=== PATIENT | male | born 1960 | race Caucasian/White ===

== ENCOUNTER 2016-09-12 15:42 | Emergency (ER) | payer BC, OTHER ==
--- NOTE | ~2016-09-12 | EKG ---
PATIENT: RYLAN MIRAMONTES UNIT #: [id number] Ventricular Rate: 75 BPM Atrial Rate: 75 BPM P-R Interval: 156 ms QRS Duration: 84 ms Q-T Interval: 408 ms QTC Calculation(Bezet): 455 ms P Excel: 47 degrees Calculated R Excel: -7 degrees Calculated T Excel: 47 degrees Diagnosis Line: Normal sinus rhythm Diagnosis Line: Low voltage QRS Diagnosis Line: Borderline ECG Diagnosis Line: When compared with ECG of 10-DEC-2011 18:31, Diagnosis Line: Vent. rate has decreased BY 45 BPM Diagnosis Line: Confirmed by EWA CARRASQUILLO MD ([id number]) on Diagnosis Line: 09/13/2016 7:15:56 AM INTERPRETING : NICOLE
--- NOTE | ~2016-09-12 | CR72 ---
[facility] A Service of [facility] & [facility] RADIOLOGY TEXT RESULTS PATIENT: RYLAN MIRAMONTES LOCATION: [facility] : 62 UNIT #: [id number] AGE: [address]: Isma Espinoza MD SEX: M ORDER DR: [id number] [facility] [address] [place], [place] [address] [id number] E MR#: [id number] Acc #: [id number] NAME: RYLAN MIRAMONTES. : 1960 SEX: M STUDY DATE/TIME: 09/12/2016 15:10 UNIT: [facility] ROOM: STUDY DESCRIPTION: CR Chest Single View Portable Attending Physician: Isma Espinoza M.D. Ordering Physician: Isma Espinoza M.D. Primary Care Physician: Fernando Ennis M.D. MEDICAL IMAGING REPORT This report is preliminary unless electronic signature is present EXAM Portable chest HISTORY 56-year-old male, shortness of air for 2 months, chest pain for 3 days. Smoker. FINDINGS AP portable view the chest demonstrates parenchymal hilar calcifications suggesting old granulomas disease. No infiltrates or effusions. Heart, mediastinum, great vessels, bony thorax unremarkable. Overall, no acute findings. Dictated by... Brian Gamez M.D. THIS IS AN ELECTRONICALLY VERIFIED REPORT Brian Gamez M.D. at 09/13/2016 1:06 PM ROBERTO/len TD: 09/12/2016 17:14 JOB #: [id number] MEDICAL IMAGING REPORT Page 1 of 1 COPY
[2016-09-12 15:35] LABS: BASOPHIL# 0.1 X10e3 (0-0.3); BASOPHIL% 0.9 % (0-2.5); EOSINOPHIL# 0.1 X10e3 (0-0.7); EOSINOPHIL% 0.8 % (0.0-7.0); HEMATOCRIT 44.2 % (38.0-50.0); HEMOGLOBIN 14.5 gm/dL (13.0-16.0); LYMPHOCYTE# 2.2 X10e3 (1.0-3.5); LYMPHOCYTE% 20.2 % (17.0-45.0); MEAN CELL VOLUME 85.5 FL (83-96); MEAN CORPUSCULAR HEMOGLOBIN 28.1 PG (28-34); MEAN CORPUSCULAR HGB CONC 32.9 g/dL (30-36); MEAN PLATELET VOLUME 7.6 FL (6.5-11.5); MONOCYTE# 0.7 X10e3 (0-1.0); NEUTROPHIL# 7.8 X10e3 (1.5-7.1); NEUTROPHIL% 72.1 % (40-75); PLATELET COUNT 264 X10e3 (140-420); RED BLOOD COUNT 5.17 X10e (3.90-5.60); RED CELL DISTRIBUTION WIDTH 13.9 % (11.0-15.5); WHITE BLOOD COUNT 10.8 X10e3 (4.0-10.5)
[2016-09-12 15:39] LABS: DIFF IND NO
[~2016-09-12 15:42] MED LIST: AMBIEN10 MG PO; AMOXICILLIN500 M1; ANTIBIOTIC; ARIPIPRAZOLE10 MG PO; AUGMENTIN PO; CLOBETASOL PROP15 G1 TOP; CLONAZEPAM0.5 MG PO; CYMBALTA PO; DESYREL50 MG PO; DICLOFENAC PO; DICYCLOMINE HCL20 MG PO; DULOXETINE HCL30 MG PO; FLOMAX0.4 M1 PO; HYDROCODON-ACE1 EAC1 PO; IBUPROFEN PO; KLONOPIN PO; KLONOPIN0.5 MG; KLONOPIN0.5 MG PO; LOSARTAN-HCTZ1 EACH PO; MOBIC PO; NEXIUM PO; PAROXETINE HCL20 MG PO; PRAVASTATIN SOD40 MG PO; PRILOSEC20 MG PO; PROTONIX PO; SYMBICORT80 INH; ULTRAM PO; VIIBRYD40 MG PO; ZITHROMAX1 G/PKT PO; ZOLOFT; ZOLOFT PO; ZOLOFT100 MG
[2016-09-12 15:48] LABS: PROTHROMBIN TIME (PATIENT) 10.2 SECONDS (9.6-11.5)
[2016-09-12 15:51] LABS: POC - CKMB 3.6 ng/mL (0.0-7.9); POC - TROPONIN <0.05 ng/mL (<=0.05)
[2016-09-12 16:03] LABS: ALBUMIN SERUM 3.8 g/dL (3.5-5.0); BILIRUBIN, DIRECT 0.1 mg/dL (0.0-0.2); BILIRUBIN,INDIRECT 0.7 mg/dL (0.0-0.9); BILIRUBIN,TOTAL 0.8 mg/dL (0.2-2.0); CREATININE SERUM 1.1 mg/dL (0.6-1.4); GLOM FILT RATE Estimated 75.2 mL/min (>60); POTASSIUM 3.5 mmol/L (3.5-5.1); PROTEIN TOTAL SERUM 6.9 g/dL (6.0-8.3)
[2016-09-12 17:00] LABS: POC - CKMB 3.5 ng/mL (0.0-7.9); POC - TROPONIN <0.05 ng/mL (<=0.05)
[2016-09-12 17:37] LABS: URINE SOURCE CLEAN CATCH
[2016-09-12 17:43] LABS: URINE APPEARANCE CLEAR; URINE BILIRUBIN NEG (NEG); URINE BLOOD NEG (NEG); URINE COLOR YELLOW; URINE GLUCOSE NEG (NEG); URINE KETONE NEG (NEG); URINE LEUKOCYTE ESTERASE NEG (NEG); URINE NITRATE NEG (NEG); URINE PROTEIN NEG (NEG); URINE SPECIFIC GRAVITY 1.017 (1.003-1.035)
[2016-09-12 17:48] LABS: CULTURE INDICATED? NO
[2016-09-12 17:52] LABS: AMPHETAMINE NEG (NEG); BARBITURATES NEG (NEG); BENZODIAZEPINES NEG (NEG); COCAINE NEG (NEG); MARIJUANA NEG (NEG); OPIATES NEG (NEG); TRICYCLIC ANTIDEPRESSANTS NEG (NEG); U METHADONE NEG (NEG)
[2016-12-29] MEDS ORDERED: DULOXETINE HCL60 M1 PO (09:54)
[2016-12-29] MEDS ORDERED: VISTARIL50 MG PO (09:55)
[2016-12-29] MEDS ORDERED: DESYREL50 MG DOB (09:56)
[2016-12-29] MEDS ORDERED: PRAVASTATIN SOD40 MG PO (09:56)
[2016-12-29] MEDS ORDERED: FLOMAX0.4 M1 DOB (09:56)
[2016-12-29] MEDS ORDERED: LOSARTAN-HCTZ1 EACH PO (09:57)
[2016-12-29] MEDS ORDERED: ABILIFY10 MG (09:57)
[2016-12-29] MEDS ORDERED: KLONOPIN0.5 M3 (09:58)
== END 2016-09-12 18:50 | disposition home or self-care (01) ==
LOC: CED 15:42
PROVIDERS: Emergency Medicine
DX: R06.02 Shortness of breath (principal); F32.9 Major depressive disorder, single episode, unspecified; J44.9 Chronic obstructive pulmonary disease, unspecified; F41.9 Anxiety disorder, unspecified
CPT/HCPCS: 36415; 71010; 80048; 80076; 80307; 81003; 82553; 83690; 83880; 84484; 85025; 85379; 85610; 85730; 93005; 94640; 96374; 99284; G0480; J2060

== ENCOUNTER 2016-10-13 13:07 | Emergency (ER) | payer BC ==
--- NOTE | ~2016-10-13 | CT71 ---
[facility] A Service of [facility] RADIOLOGY TEXT RESULTS PATIENT: RYLAN MIRAMONTES LOCATION: [facility] : 62 UNIT #: [id number] AGE: [address]: José Antonio Altman MD SEX: M ORDER DR: [id number] [facility] [address] [place], [place] [address] [id number] E MR#: [id number] Acc #: [id number] NAME: RYLAN MIRAMONTES. : 1960 SEX: M STUDY DATE/TIME: 10/13/2016 14:07 UNIT: [facility] ROOM: STUDY DESCRIPTION: CT Head Wo Contrast Ordering Physician: Twin Altman M.D. MEDICAL IMAGING REPORT This report is preliminary unless electronic signature is present EXAM CT brain without contrast 10/13/2016 COMPARISON STUDIES 02/07/2008. HISTORY Anxiety attack. Chest pain. Pain everywhere. Panic attacks. TECHNIQUE Axial imaging of the brain was performed without contrast media. This CT exam was performed with one or more of the following radiation dose reduction techniques: automatic exposure control, adjustment of mA and/or kV according to patient size, and iterative reconstruction. COMPARISON STUDIES 02/07/2008. FINDINGS Ventricular size and configuration is stable. There is some decreased attenuation in the right basal ganglia, likely a prominent perivascular space. There is also some ill-defined decreased attenuation in the white matter bilaterally. No mass lesions, mass effect acute hemorrhage or edema. CONCLUSION Atrophy. Small vessel deep white matter ischemic changes in the periventricular regions. No acute intracranial findings. NOTE Incidental note is made of inflammatory sinus disease in the frontal and [facility] A Service of [facility] RADIOLOGY TEXT RESULTS PATIENT: RYLAN MIRAMONTES LOCATION: [facility] : 62 UNIT #: [id number] AGE: [address]: José Antonio Altman MD SEX: M ORDER DR: ethmoid sinuses. Dictated by... Cyrus Spence M.D. THIS IS AN ELECTRONICALLY VERIFIED REPORT Cyrus Spence M.D. at 10/14/2016 12:15 PM CANDELARIO/len TD: 10/13/2016 17:10 JOB #: [id number] MEDICAL IMAGING REPORT Page 1 of 1 COPY
[2016-10-13 14:15] LABS: URINE SOURCE CLEAN CATCH
[2016-10-13 14:20] LABS: BASOPHIL# 0.1 X10e3 (0-0.3); BASOPHIL% 0.8 % (0-2.5); DIFF IND NO; EOSINOPHIL# 0.1 X10e3 (0-0.7); EOSINOPHIL% 0.7 % (0.0-7.0); HEMATOCRIT 44.3 % (38.0-50.0); HEMOGLOBIN 14.8 gm/dL (13.0-16.0); LYMPHOCYTE# 2.8 X10e3 (1.0-3.5); LYMPHOCYTE% 27.4 % (17.0-45.0); MEAN CELL VOLUME 86.1 FL (83-96); MEAN CORPUSCULAR HEMOGLOBIN 28.8 PG (28-34); MEAN CORPUSCULAR HGB CONC 33.5 g/dL (30-36); MEAN PLATELET VOLUME 7.8 FL (6.5-11.5); MONOCYTE# 0.7 X10e3 (0-1.0); MONOCYTE% 6.3 % (3.0-12.0); NEUTROPHIL# 6.7 X10e3 (1.5-7.1); NEUTROPHIL% 64.8 % (40-75); PLATELET COUNT 245 X10e3 (140-420); RED BLOOD COUNT 5.15 X10e (3.90-5.60); RED CELL DISTRIBUTION WIDTH 14.1 % (11.0-15.5); WHITE BLOOD COUNT 10.3 X10e3 (4.0-10.5)
[2016-10-13 14:28] LABS: URINE APPEARANCE CLEAR; URINE BILIRUBIN NEG (NEG); URINE BLOOD NEG (NEG); URINE COLOR DK YELLOW; URINE GLUCOSE NEG (NEG); URINE KETONE TRACE (NEG); URINE LEUKOCYTE ESTERASE TRACE (NEG); URINE NITRATE NEG (NEG); URINE PH 5.5 (5-8); URINE PROTEIN NEG (NEG); URINE SPECIFIC GRAVITY 1.022 (1.003-1.035)
[2016-10-13 14:30] LABS: AMPHETAMINE NEG (NEG); BARBITURATES NEG (NEG); BENZODIAZEPINES NEG (NEG); COCAINE NEG (NEG); MARIJUANA NEG (NEG); OPIATES NEG (NEG); TRICYCLIC ANTIDEPRESSANTS NEG (NEG); U METHADONE NEG (NEG)
[2016-10-13 14:31] LABS: URINE BACTERIA AUWI NEG (NEGATIVE); URINE SQUAMOUS EPITHELIAL CELL NONE SEEN /[HPF]
[2016-10-13 14:37] LABS: CULTURE INDICATED? NO
[2016-10-13 14:46] LABS: ALKALINE PHOSPHATASE 84 U/L (32-92); ALT (SGPT) 14 U/L (10-40); AST (SGOT) 13 U/L (10-42); BILIRUBIN, DIRECT 0.1 mg/dL (0.0-0.2); BILIRUBIN,INDIRECT 0.5 mg/dL (0.0-0.9); BILIRUBIN,TOTAL 0.6 mg/dL (0.2-2.0); BLOOD UREA NITROGEN 11 mg/dL (9-23); CALCIUM SERUM 9.1 mg/dL (8.4-10.2); CARBON DIOXIDE 29 mmol/L (22-31); CHLORIDE 103 mmol/L (100-111); GLOM FILT RATE Estimated 84.4 mL/min (>60); GLUCOSE FASTING 112 mg/dL (70-110); POTASSIUM 3.7 mmol/L (3.5-5.1); PROTEIN TOTAL SERUM 7.2 g/dL (6.0-8.3); SODIUM 139 mmol/L (135-145)
[2016-10-13 14:51] LABS: ALCOHOL BLOOD <5 mg/dL (0)
[2016-12-29] MEDS ORDERED: DULOXETINE HCL60 M1 PO (09:54)
[2016-12-29] MEDS ORDERED: VISTARIL50 MG PO (09:55)
[2016-12-29] MEDS ORDERED: DESYREL50 MG DOB (09:56)
[2016-12-29] MEDS ORDERED: PRAVASTATIN SOD40 MG PO (09:56)
[2016-12-29] MEDS ORDERED: FLOMAX0.4 M1 DOB (09:56)
[2016-12-29] MEDS ORDERED: LOSARTAN-HCTZ1 EACH PO (09:57)
[2016-12-29] MEDS ORDERED: ABILIFY10 MG (09:57)
[2016-12-29] MEDS ORDERED: KLONOPIN0.5 M3 (09:58)
== END 2016-10-13 19:45 | disposition home or self-care (01) ==
LOC: CED 13:07
PROVIDERS: Emergency Medicine
DX: F32.9 Major depressive disorder, single episode, unspecified (principal); I10 Essential (primary) hypertension; F17.210 Nicotine dependence, cigarettes, uncomplicated; Z79.899 Other long term (current) drug therapy
CPT/HCPCS: 70450; 80048; 80076; 80307; 81003; 85025; 99283; G0480

== ENCOUNTER 2016-11-16 06:56 | Emergency (ER) | payer BC ==
--- NOTE | ~2016-11-16 | CR72 ---
[facility] A Service of [facility] & [facility] RADIOLOGY TEXT RESULTS PATIENT: RYLAN MIRAMONTES LOCATION: [facility] : 62 UNIT #: [id number] AGE: [address]: Kaylene Swartz APRN SEX: M ORDER DR: [id number] [facility] [address] [place], [place] [address] [id number] E MR#: [id number] Acc #: [id number] NAME: RYLAN MIRAMONTES. : 1960 SEX: M STUDY DATE/TIME: 11/16/2016 8:04 UNIT: [facility] ROOM: STUDY DESCRIPTION: CR Chest Single View Portable Attending Physician: Kaylene Swartz A.P.R.N. Ordering Physician: Ed Doctor [id number] [facility] Primary Care Physician: [facility] MEDICAL IMAGING REPORT This report is preliminary unless electronic signature is present EXAM Portable chest INDICATIONS Cough for 1 month. COMPARISON 09/12/2016 FINDINGS There are increased interstitial opacities in the lungs and vague airspace opacity, mainly in the right base. Heart size stable. IMPRESSION There are increased interstitial opacities in the lungs and vague airspace opacity in the right base. Findings may reflect pulmonary edema or could be infectious or inflammatory. Dictated by... Melo Gamez M.D. THIS IS AN ELECTRONICALLY VERIFIED REPORT Melo Gamez M.D. at 11/17/2016 8:14 AM ANGELIQUE/royal TD: 11/16/2016 13:24 JOB #: [id number] MEDICAL IMAGING REPORT Page 1 of 1 COPY
--- NOTE | ~2016-11-16 | CT55 ---
[facility] A Service of [facility] RADIOLOGY TEXT RESULTS PATIENT: RYLAN MIRAMONTES LOCATION: [facility] : 62 UNIT #: [id number] AGE: [address]: Kaylene Swartz APRN SEX: M ORDER DR: [id number] [facility] [address] [place], [place] [address] [id number] E MR#: [id number] Acc #: [id number] NAME: RYLAN MIRAMONTES. : 1960 SEX: M STUDY DATE/TIME: 11/16/2016 8:55 UNIT: [facility] ROOM: STUDY DESCRIPTION: CT Chest W Con Attending Physician: Kaylene Swartz A.P.R.N. Ordering Physician: Melvi Mendoza M.D. Primary Care Physician: [facility] MEDICAL IMAGING REPORT This report is preliminary unless electronic signature is present EXAM Chest CT 11/16/2016 INDICATION Weight loss over the last month with a cough for 2 months. TECHNIQUE Axial images were obtained through the chest following IV contrast administration. Multiplanar reformats were obtained. No comparison. This CT examination was performed with one or more of the following radiation dose reduction techniques: automatic exposure control, adjustment of mA and/or kV according to patient size, and iterative reconstruction. FINDINGS No pleural or pericardial effusion is seen. There is no adenopathy. There is a mild degree of emphysema. Scattered granulomatous calcifications are present in both lungs. There are no acute infiltrates. For description of findings in the upper abdomen, please see the abdomen and pelvis CT report dictated separately. There is diffuse degenerative disease in the thoracic spine. IMPRESSION Emphysema and old granulomatous disease. No active disease in the chest. Dictated by... Xavier Espinoza Jr., M.D. THIS IS AN ELECTRONICALLY VERIFIED REPORT Xavier Espinoza Jr., M.D. at 11/16/2016 3:38 PM RLK/marcias [facility] A Service of [facility] RADIOLOGY TEXT RESULTS PATIENT: RYLAN MIRAMONTES LOCATION: [facility] : 62 UNIT #: [id number] AGE: [address]: Kaylene Swartz APRN SEX: M ORDER DR: TD: 11/16/2016 14:11 JOB #: [id number] MEDICAL IMAGING REPORT Page 1 of 1 COPY
--- NOTE | ~2016-11-16 | CT2 ---
[facility] A Service of [facility] RADIOLOGY TEXT RESULTS PATIENT: RYLAN MIRAMONTES LOCATION: [facility] : 62 UNIT #: [id number] AGE: [address]: Kaylene Swartz APRN SEX: M ORDER DR: [id number] [place] [id number] [facility] [place], [place] [address] [id number] E MR#: [id number] Acc #: [id number] NAME: RYLAN MIRAMONTES. : 1960 SEX: M STUDY DATE/TIME: 11/16/2016 8:55 UNIT: [facility] ROOM: STUDY DESCRIPTION: CT Abd and Pelv W Cont Attending Physician: Kaylene Swartz A.P.R.N. Ordering Physician: Melvi Mendoza M.D. Primary Care Physician: [facility] MEDICAL IMAGING REPORT This report is preliminary unless electronic signature is present EXAM CT scan of the abdomen and pelvis with contrast INDICATIONS Abdominal pain and generalized abdominal tenderness for [address] of the abdomen and pelvis was performed following administration of oral and IV contrast. Coronal and sagittal reformatted images were obtained. The CT exam was performed with one or more of the following radiation dose reduction techniques: automatic exposure control, adjustment of mA and/or kV according to patient size, and iterative reconstruction. COMPARISON: 06/16/07 FINDINGS There are calcified granulomas within the lung bases. The liver, gallbladder and spleen are unremarkable. There are some cysts within the left kidney. There is a tiny nonobstructing stone within the midpole of the right kidney. The adrenal glands and pancreas are unremarkable. Pelvis: The colon is unremarkable. There is no free fluid. The appendix is normal. Bone windows demonstrate degenerative changes of the lumbar spine. IMPRESSION There is no acute intraabdominal or pelvic abnormality. Dictated by... [facility] A Service [facility] RADIOLOGY TEXT RESULTS PATIENT: RYLAN MIRAMONTES LOCATION: [facility] : 62 UNIT #: [id number] AGE: [address]: Kaylene Swartz APRN SEX: M ORDER DR: Melo Gamez M.D. THIS IS AN ELECTRONICALLY VERIFIED REPORT Melo Gamez M.D. at 11/17/2016 8:15 AM ANGELIQUE/terry TD: 11/16/2016 14:02 JOB #: [id number] MEDICAL IMAGING REPORT Page 1 of 1 COPY
--- NOTE | ~2016-11-16 | EKG ---
PATIENT: RYLAN MIRAMONTES UNIT #: [id number] Ventricular Rate: 79 BPM Atrial Rate: 79 BPM P-R Interval: 150 ms QRS Duration: 82 ms Q-T Interval: 408 ms QTC Calculation(Bezet): 467 ms P [place]: 56 degrees Calculated R [place]: -5 degrees Calculated T [place]: 58 degrees Diagnosis Line: Normal sinus rhythm Diagnosis Line: Normal ECG Diagnosis Line: When compared with ECG of 12-SEP-2016 15:09, Diagnosis Line: No significant change was found Diagnosis Line: Confirmed by EWA CARRASQUILLO MD ([id number]) on Diagnosis Line: 11/17/2016 10:51:48 AM INTERPRETING BRUCE RIVERA
[2016-11-16 08:02] LABS: BASOPHIL# 0.1 X10e3 (0-0.3); BASOPHIL% 0.4 % (0-2.5); EOSINOPHIL# 0.1 X10e3 (0-0.7); EOSINOPHIL% 0.6 % (0.0-7.0); HEMATOCRIT 44.4 % (38.0-50.0); HEMOGLOBIN 14.5 gm/dL (13.0-16.0); LYMPHOCYTE# 2.3 X10e3 (1.0-3.5); MEAN CELL VOLUME 86.3 FL (83-96); MEAN CORPUSCULAR HEMOGLOBIN 28.2 PG (28-34); MEAN CORPUSCULAR HGB CONC 32.6 g/dL (30-36); MEAN PLATELET VOLUME 7.7 FL (6.5-11.5); MONOCYTE# 0.9 X10e3 (0-1.0); MONOCYTE% 5.7 % (3.0-12.0); NEUTROPHIL# 12.7 X10e3 (1.5-7.1); NEUTROPHIL% 79.3 % (40-75); PLATELET COUNT 250 X10e3 (140-420); RED BLOOD COUNT 5.14 X10e (3.90-5.60); RED CELL DISTRIBUTION WIDTH 14.8 % (11.0-15.5); WHITE BLOOD COUNT 16.1 X10e3 (4.0-10.5)
[2016-11-16 08:03] LABS: DIFF IND YES
[2016-11-16 08:13] LABS: POC - CKMB <1.0 ng/mL (0.0-7.9); POC - TROPONIN <0.05 ng/mL (<=0.05)
[2016-11-16 08:30] LABS: ALBUMIN SERUM 3.6 g/dL (3.5-5.0); BILIRUBIN, DIRECT 0.2 mg/dL (0.0-0.2); BILIRUBIN,INDIRECT 0.9 mg/dL (0.0-0.9); BILIRUBIN,TOTAL 1.1 mg/dL (0.2-2.0); CALCIUM SERUM 8.6 mg/dL (8.4-10.2); GLOM FILT RATE Estimated 84.4 mL/min (>60); PROTEIN TOTAL SERUM 6.7 g/dL (6.0-8.3)
[2016-11-16 08:37] LABS: POTASSIUM 2.9 mmol/L (3.5-5.1)
[2016-11-16 09:00] LABS: PLATELET ESTIMATE NORMAL (NORMAL); RBC NORMAL YES
[2016-11-16 10:14] LABS: URINE SOURCE CLEAN CATCH
[2016-11-16 10:46] LABS: URINE APPEARANCE CLEAR; URINE BILIRUBIN NEG (NEG); URINE BLOOD NEG (NEG); URINE COLOR YELLOW; URINE GLUCOSE NEG (NEG); URINE KETONE NEG (NEG); URINE LEUKOCYTE ESTERASE 1+ (NEG); URINE NITRATE NEG (NEG); URINE PROTEIN NEG (NEG); URINE SPECIFIC GRAVITY 1.017 (1.003-1.035); URINE UROBILINOGEN 0.2 MG/DL (NEG)
[2016-11-16 10:49] LABS: URBCS1 AUWI 0-2 /[HPF] (0-2); URINE BACTERIA AUWI NEG (NEGATIVE); URINE SQUAMOUS EPITHELIAL CELL NONE SEEN /[HPF]; UWBCS1 AUWI 0-2 (0-5)
[2016-11-16 11:02] LABS: CULTURE INDICATED? NO
[2016-11-16 11:05] LABS: URINE AMORPHOUS SEDIMENT AMORP PHOSPHATES
[2016-12-29] MEDS ORDERED: DULOXETINE HCL60 M1 PO (09:54)
[2016-12-29] MEDS ORDERED: VISTARIL50 MG PO (09:55)
[2016-12-29] MEDS ORDERED: FLOMAX0.4 M1 DOB (09:56)
[2016-12-29] MEDS ORDERED: PRAVASTATIN SOD40 MG PO (09:56)
[2016-12-29] MEDS ORDERED: DESYREL50 MG DOB (09:56)
[2016-12-29] MEDS ORDERED: LOSARTAN-HCTZ1 EACH PO (09:57)
[2016-12-29] MEDS ORDERED: ABILIFY10 MG (09:57)
[2016-12-29] MEDS ORDERED: KLONOPIN0.5 M3 (09:58)
== END 2016-11-16 12:03 | disposition home or self-care (01) ==
LOC: CED 06:56
PROVIDERS: Nurse Practitioner
DX: R10.9 Unspecified abdominal pain (principal); E87.6 Hypokalemia; R06.02 Shortness of breath; F41.9 Anxiety disorder, unspecified; F17.210 Nicotine dependence, cigarettes, uncomplicated
CPT/HCPCS: 36415; 71010; 71260; 74177; 80048; 80076; 81003; 82150; 82553; 83690; 84484; 85025; 93005; 96361; 96374; 96375; 99285; J1885; J2405; Q9967

== ENCOUNTER 2016-12-02 13:00 | Inpatient (IN) | payer BC ==
[~2016-12-02] VITALS: Ht 185.4 cm; Wt 111.1 kg
--- NOTE | ~2016-12-02 | DS ---
Unit #: [id number] #: [id number] Patient: RYLAN MIRAMONTES [id number] [facility] [address] [place] [address] [id number] I MR#: [id number] NAME: RYLAN MIRAMONTES. ROOM: P266 Age: 56 Sex: M Admission Date: 12/02/2016 : 1960 Discharge Date: 12/03/2016 Attending Physician: Ruddy Peterson M.D. Primary Care Physician: Chey Enriquez [facility] DISCHARGE SUMMARY REASON FOR ADMISSION The patient is a 56-year-old white male admitted with increasing depression and suicidal ideation. HOSPITAL COURSE The patient was admitted to the -[facility] and placed on suicide precautions. He was continued on previously prescribed medications and Cymbalta increased to 120 mg daily. The patient requested discharge on the date of admission reporting that he was having no thoughts of suicide but did agree to 24 hours of observation. By 12/04, the patient continued to deny suicidal ideation and requested discharge from the hospital, and it was so ordered. FINAL DIAGNOSES 1. Major depressive disorder, recurrent, moderate. 2. Hard of hearing. 3. Congenital hearing loss. 4. Hypertension. 5. Dyslipidemia. 6. Chronic obstructive pulmonary disease. 7. Benign prostatic hypertrophy. 8. Gastroesophageal reflux disease. DISPOSITION ON DISCHARGE The patient was discharged on the following medications: 1. Cymbalta 120 mg daily for depression. 2. Vistaril 50 mg q. 6 hours p.r.n. anxiety. 3. Oretic 12.5 mg once daily for hypertension. 4. Cozaar 50 mg once daily for hypertension. 5. Zofran 4 mg 3 times daily for nausea. 6. Klor-Con 21 q. day for potassium supplementation. 7. Desyrel 50 mg a day p.r.n. insomnia. 8. Flomax 0.8 mg daily for benign prostatic hypertrophy. 9. Lipitor 10 mg at bedtime for dyslipidemia. 10. Proventil HFA 2 puffs q. 4 hours p.r.n. shortness of air. 11. Abilify 10 mg daily for depression. DIET AND ACTIVITY No dietary or physical restrictions placed on the patient at the time of discharge. FOLLOWUP Followup will take place through the auspices of [facility]. Unit #: [id number] #: [id number] Patient: RYLAN MIRAMONTES PROGNOSIS Considered fair. Dictated by... Genet Jose TD: 12/04/2016 12:11 JOB #: [id number] DISCHARGE SUMMARY Page 1 of 1 X Ruddy Peterson MD X DISCHARGE SUMMARY
--- NOTE | ~2016-12-02 | HP ---
Unit #: [id number] #: [id number] Patient: RANDOLPH MIRAMONTES [id number] [place] [address] [id number] I MR#: [id number] NAME: RANDOLPH MIRAMONTES. ROOM: P266 Age: 56 Sex: M Admission Date: 12/02/2016 : 1960 Attending Physician: Ruddy Peterson M.D. Admitting Physician: Ruddy Peterson M.D. Primary Care Physician: Chey Enriquez [facility] HISTORY AND PHYSICAL HISTORY OF PRESENT ILLNESS Randolph is a 56 year old admitted to [address] [place] [address] with depression, increased anxiety and verbalizing wanting to hurt himself. PAST MEDICAL HISTORY 1. GERD. 2. High blood pressure. 3. Hyperlipidemia. 4. COPD. 5. BPH. 6. Congenital hearing loss. a. He wears hearing aids in both ears but only has the right one with him during this admission. PAST SURGICAL HISTORY Nothing reported. ALLERGIES Gabapentin. SOCIAL HISTORY Smokes 1-1/2 packs per day. Denies alcohol and illicit drug use. FAMILY HISTORY Medically noncontributory. REVIEW OF SYSTEMS CONSTITUTIONAL: No fever or chills. HEENT: Denies any sore throat, ear pain or runny nose. CARDIOVASCULAR: Denies chest pain, irregular heart rhythm or palpitations. CHEST: Denies shortness of breath or cough. No hemoptysis. GASTROINTESTINAL: Denies nausea, vomiting, diarrhea or chronic constipation. ENDOCRINE: Denies history of increased thirst or urination. No recent significant weight loss or gain. GENITOURINARY: Denies dysuria, frequency, or hematuria. SKIN: Denies any rashes. HEMATOLOGIC: Denies history of increased bleeding or bruising. MUSCULOSKELETAL: Denies any hot, swollen joints. No generalized muscle pain. NEUROLOGIC: Denies problems with vision or speech. No frequent, severe headaches. No numbness, tingling or weakness in any extremities. Denies loss of bladder or bowel control. Unit #: [id number] #: [id number] Patient: RANDOLPH MIRAMONTES CURRENT MEDICATIONS 1. Lipitor 10 mg daily. 2. Desyrel 50 mg daily. 3. Melatonin 6 mg q.h.s. p.r.n. 4. Milk of Magnesia p.r.n. 5. Maalox p.r.n. 6. Tylenol p.r.n. 7. Proventil inhaler p.r.n. 8. Zofran p.r.n. 9. Nicotine patch 14 mg daily. 10. Abilify 10 mg q.a.m. 11. Hyzaar 50/12.5 one tab daily. 12. Flomax 0.8 mg daily. 13. Cymbalta 90 mg daily. 14. KCL 20 mEq daily. PHYSICAL EXAMINATION GENERAL: Alert, well-nourished, in no apparent distress. VITAL SIGNS: Blood pressure 110/70, heart rate 80, respirations 16, temperature 98.6. WEIGHT: 245. HEIGHT: 6 feet 1 inch. SKIN: Warm and dry without rash or lesion. HEENT: Normocephalic. TMs not viewed. Oral and nasal passages clear. Conjunctivae clear. PERRLA. EOMs intact. NECK: Supple without lymphadenopathy or thyromegaly. HEART: Regular rate and rhythm without murmur. LUNGS: Clear. ABDOMEN: Soft, nontender. : Not done. EXTREMITIES: No evidence of cyanosis, clubbing or edema. Moves all without focal deficit. NEUROLOGICAL: Grossly within normal limits. Cranial Nerves: II: Visual smith are intact. III, IV AND : Extraocular movements are intact. Pupils are equal, round and reactive to light. V: Facial sensation is grossly normal. VII: Facial movements and expression are normal. VIII: Auditory acuity grossly intact. IX, X: Uvula is midline. Phonation is normal. XI: Patient shrugs shoulders and turns head normally. XII: Tongue protrudes in the midline. Sensory and Motor Function: Sensory and motor sensation is grossly normal. Motor: moves all extremities well. Coordination: Gait is normal. Deep Tendon Reflexes: Intact. IMPRESSION Psychiatric admission. RECOMMENDATIONS PSYCHIATRIC: Per psychiatrist. MEDICAL: 1. See no contraindication to participate in facility's activities. 2. Continue Lipitor, Proventil, Hyzaar, Flomax and KCL. MEDICAL PROGNOSIS Good. Unit #: [id number] #: [id number] Patient: RANDOLPH MIRAMONTES MEDICAL CONDITION Stable. Dictated by... Cee Valenzuela P.A.-C. for Genet BañuelosJA/mesfin TD: 12/02/2016 21:34 JOB #: [id number] HISTORY AND PHYSICAL Page 1 of 1 X Cee Valenzuela HISTORY AND PHYSICAL
--- NOTE | ~2016-12-02 | PA ---
Unit #: [id number] #: [id number] Patient: RYLAN MIRAMONTES [id number] [facility] [address] [place] [address] [id number] I MR#: [id number] NAME: RYLAN MIRAMONTES. ROOM: P266 Age: 56 Sex: M Admission Date: 12/02/2016 : 1960 Date of Assessment: 12/03/2016 Attending Physician: Ruddy Peterson M.D. Admitting Physician: Ruddy Peterson M.D. Primary Care Physician: [facility] PSYCHIATRIC ASSESSMENT IDENTIFYING INFORMATION The patient is a 56-year-old white male admitted with increasing depression and suicidal ideation. CHIEF COMPLAINT None given. INFORMANT Patient and chart, reliability good. HISTORY OF PRESENT ILLNESS The patient is a 56-year-old white male brought to this facility by his yesterday. The patient reports that he is having increasing panic attacks at his work place which become difficult for him. He reports that he has visited emergency rooms 4 to 5 times in the past 2 months secondary to these panic attacks. He was reporting positive suicidal ideation but denied plan or intent. When seen, the patient is prescribed Cymbalta, Neurontin, trazodone, and Abilify at this time. According to the patient's , "all that patient wants to do is lie down and sleep all the time including his time at work." The patient reports no current suicidal ideation and is wishing for discharge. He reports that family members have removed firearms from the home. He denies use of any psychoactive substances. PAST PSYCHIATRIC HISTORY The patient has been followed at [facility] and is on a host of psychotropic medications including trazodone, Cymbalta, and Abilify. It is unclear whether he has been taking Neurontin as he claims an allergy to this medication. PAST MEDICAL HISTORY The patient suffers from benign prostatic hypertrophy, hypertension, and dyslipidemia as well as COPD. MEDICATIONS Abilify, Pro-Air, pravastatin, losartan, Flomax, Cymbalta, trazodone, potassium, and Zofran. ALLERGIES Gabapentin. FAMILY HISTORY Noncontributory. Unit #: [id number] #: [id number] Patient: RYLAN MIRAMONTES SOCIAL HISTORY The patient lives with his and 2 children. He is employed in maintenance at the [employer]. He denies use of alcohol or street drugs. He is a smoker. MENTAL STATUS EXAMINATION Examination at this time reveals the patient to be a well-developed well-nourished white male appearing stated age. She is in no apparent physical distress at the time of examination. He is awake, alert, and oriented in all spheres. His mood is mildly dysphoric, his affect constricted. Speech is generally well-coherent. There are no gross deficits in memory or cognition noted. Intelligence is judged to be in the low average range based on fund of knowledge and ability to provide history. The patient is cooperative throughout the interview. He is currently denying suicidal or homicidal ideation or any psychotic symptoms. His judgment and insight appear to be reasonably intact. ASSETS AND LIABILITIES The patient's assets: Supportive family. Liabilities: Severity of illness. DIAGNOSTIC IMPRESSION 1. Major depressive disorder, recurrent, severe, without psychotic features. 2. Benign prostatic hypertrophy. 3. Hypertension. 4. Hypercholesterolemia. 5. Chronic obstructive pulmonary disease. TREATMENT PLAN The patient remains hospitalized for safety and stabilization. I will increase the patient's Cymbalta dose to 120 mg daily, and we will consider addition of BuSpar or another medication to address the patient's symptoms of anxiety. The patient is hard of hearing but also seems to have some difficulty processing information almost seeming (1) __ this is related to his limited intelligence or perhaps an early dementia remains unseen, and may need to be explored if not during this hospitalization outside the hospital. ESTIMATED LENGTH OF STAY 3 to 5 days. Dictated by... Ruddy Peterson M.D. [place] TD: 12/03/2016 14:06 JOB #: [id number] Unit #: [id number] #: [id number] Patient: RYLAN MIRAMONTES PSYCHIATRIC ASSESSMENT Page 1 of 1 X Ruddy Peterson MD PSYCHIATRIC ASSESSMENT
[2016-12-03 12:38] LABS: BASOPHIL% 0.3 % (0-2.5); EOSINOPHIL# 0.1 X10e3 (0-0.7); EOSINOPHIL% 1.2 % (0.0-7.0); HEMATOCRIT 45.8 % (38.0-50.0); HEMOGLOBIN 14.8 gm/dL (13.0-16.0); LYMPHOCYTE# 2.4 X10e3 (1.0-3.5); LYMPHOCYTE% 22.8 % (17.0-45.0); MEAN CELL VOLUME 86.6 FL (83-96); MEAN CORPUSCULAR HGB CONC 32.4 g/dL (30-36); MEAN PLATELET VOLUME 8.5 FL (6.5-11.5); MONOCYTE# 0.6 X10e3 (0-1.0); MONOCYTE% 6.2 % (3.0-12.0); NEUTROPHIL# 7.2 X10e3 (1.5-7.1); NEUTROPHIL% 69.5 % (40-75); PLATELET COUNT 235 X10e3 (140-420); RED BLOOD COUNT 5.29 X10e (3.90-5.60); RED CELL DISTRIBUTION WIDTH 14.5 % (11.0-15.5); WHITE BLOOD COUNT 10.3 X10e3 (4.0-10.5)
[2016-12-03 12:47] LABS: DIFF IND NO
[2016-12-03 12:55] LABS: ALBUMIN SERUM 3.6 g/dL (3.5-5.0); BILIRUBIN,TOTAL 0.5 mg/dL (0.2-2.0); CALCIUM SERUM 9.2 mg/dL (8.4-10.2); GLOM FILT RATE Estimated 84.4 mL/min (>60); POTASSIUM 4.3 mmol/L (3.5-5.1); PROTEIN TOTAL SERUM 6.7 g/dL (6.0-8.3)
[2016-12-04 11:07] LABS: URINE APPEARANCE CLEAR; URINE BILIRUBIN NEG (NEG); URINE BLOOD NEG (NEG); URINE COLOR YELLOW; URINE GLUCOSE NEG (NEG); URINE KETONE NEG (NEG); URINE LEUKOCYTE ESTERASE NEG (NEG); URINE NITRATE NEG (NEG); URINE PH 7.5 (5-8); URINE PROTEIN NEG (NEG); URINE SPECIFIC GRAVITY 1.013 (1.003-1.035); URINE UROBILINOGEN 0.2 MG/DL (NEG)
[2016-12-04 11:22] LABS: AMPHETAMINE NEG (NEG); BARBITURATES NEG (NEG); BENZODIAZEPINES NEG (NEG); COCAINE NEG (NEG); MARIJUANA NEG (NEG); OPIATES NEG (NEG); TRICYCLIC ANTIDEPRESSANTS NEG (NEG); U METHADONE NEG (NEG)
[2016-12-29] MEDS ORDERED: DULOXETINE HCL60 M1 PO (09:54)
[2016-12-29] MEDS ORDERED: VISTARIL50 MG PO (09:55)
[2016-12-29] MEDS ORDERED: DESYREL50 MG DOB (09:56)
[2016-12-29] MEDS ORDERED: FLOMAX0.4 M1 DOB (09:56)
[2016-12-29] MEDS ORDERED: PRAVASTATIN SOD40 MG PO (09:56)
[2016-12-29] MEDS ORDERED: LOSARTAN-HCTZ1 EACH PO (09:57)
[2016-12-29] MEDS ORDERED: ABILIFY10 MG (09:57)
[2016-12-29] MEDS ORDERED: KLONOPIN0.5 M3 (09:58)
== END 2016-12-04 11:45 | disposition home or self-care (01) | DRG 885 ==
LOC: P2L 16:31
PROVIDERS: Specialist
DX: F33.2 Major depressive disorder, recurrent severe without psychotic features (principal); H90.5 Unspecified sensorineural hearing loss; I10 Essential (primary) hypertension; N40.0 Benign prostatic hyperplasia without lower urinary tract symptoms; E78.00 Pure hypercholesterolemia, unspecified; J44.9 Chronic obstructive pulmonary disease, unspecified; K21.9 Gastro-esophageal reflux disease without esophagitis
CPT/HCPCS: 80053; 80307; 81003; 85025

== ENCOUNTER 2016-12-08 17:40 | Emergency (ER) | payer BC ==
[~2016-12-08] VITALS: Ht 185.4 cm; Wt 110.2 kg
--- NOTE | ~2016-12-08 | CR72 ---
[facility] A Service of [facility] & [facility] RADIOLOGY TEXT RESULTS PATIENT: RYLAN MIRAMONTES LOCATION: [facility] : 62 UNIT #: [id number] AGE: [address]: Xavier Henry MD SEX: M ORDER DR: [id number] [facility] [address] [place], [place] [address] [id number] E MR#: [id number] Acc #: [id number] NAME: RYLAN MIRAMONTES. : 1960 SEX: M STUDY DATE/TIME: 12/08/2016 18:46 UNIT: [facility] ROOM: STUDY DESCRIPTION: CR Chest Single View Portable Attending Physician: Xavier Henry M.D. Ordering Physician: Xavier Henry M.D. Primary Care Physician: [facility] MEDICAL IMAGING REPORT This report is preliminary unless electronic signature is present EXAM Portable chest 12/08/2016 HISTORY 56-year-old male with chest pain and shortness of air beginning 2 days ago. COMPARISON Chest 11/16/2016 FINDINGS Two frontal views of the chest demonstrate clear lungs. No pleural effusion or pneumothorax. Heart size and mediastinum are normal. Pulmonary vasculature normal. IMPRESSION No acute cardiopulmonary findings Dictated by... Alvin Daniel M.D. THIS IS AN ELECTRONICALLY VERIFIED REPORT Alvin Daniel M.D. at 12/09/2016 3:58 PM WALDO/brandon TD: 12/09/2016 05:08 JOB #: [id number] MEDICAL IMAGING REPORT Page 1 of 1 COPY
--- NOTE | ~2016-12-08 | EKG ---
PATIENT: RYLAN MIRAMONTES UNIT #: [id number] Ventricular Rate: 86 BPM Atrial Rate: 86 BPM P-R Interval: 150 ms QRS Duration: 76 ms Q-T Interval: 384 ms QTC Calculation(Bezet): 459 ms P Morrison: 65 degrees Calculated R [place]: 32 degrees Calculated T Morrison: 60 degrees Diagnosis Line: Normal sinus rhythm Diagnosis Line: Normal ECG Diagnosis Line: When compared with ECG of 16-NOV-2016 07:48, Diagnosis Line: No significant change was found Diagnosis Line: Confirmed by ILIA ASCENCIO MD ([id number]) on Diagnosis Line: 12/10/2016 7:29:29 AM INTERPRETING MD: SILVA TSE
[2016-12-08 18:40] LABS: BASOPHIL# 0.1 X10e3 (0-0.3); BASOPHIL% 1.1 % (0-2.5); EOSINOPHIL# 0.2 X10e3 (0-0.7); EOSINOPHIL% 1.6 % (0.0-7.0); HEMATOCRIT 47.1 % (38.0-50.0); HEMOGLOBIN 15.4 gm/dL (13.0-16.0); LYMPHOCYTE# 3.8 X10e3 (1.0-3.5); MEAN CELL VOLUME 85.6 FL (83-96); MEAN CORPUSCULAR HGB CONC 32.8 g/dL (30-36); MEAN PLATELET VOLUME 7.9 FL (6.5-11.5); MONOCYTE# 0.7 X10e3 (0-1.0); MONOCYTE% 6.5 % (3.0-12.0); NEUTROPHIL# 5.6 X10e3 (1.5-7.1); NEUTROPHIL% 53.8 % (40-75); PLATELET COUNT 247 X10e3 (140-420); RED BLOOD COUNT 5.51 X10e (3.90-5.60); RED CELL DISTRIBUTION WIDTH 14.5 % (11.0-15.5); WHITE BLOOD COUNT 10.3 X10e3 (4.0-10.5)
[2016-12-08 18:44] LABS: DIFF IND NO
[2016-12-08 18:55] LABS: POC - CKMB <1.0 ng/mL (0.0-7.9); POC - TROPONIN <0.05 ng/mL (<=0.05)
[2016-12-08 19:05] LABS: ALBUMIN SERUM 3.9 g/dL (3.5-5.0); BILIRUBIN, DIRECT 0.1 mg/dL (0.0-0.2); BILIRUBIN,TOTAL 1.1 mg/dL (0.2-2.0); BUN/CREATININE RATIO 16.15; CALCIUM SERUM 9.1 mg/dL (8.4-10.2); CREATININE SERUM 1.3 mg/dL (0.6-1.4); GLOM FILT RATE Estimated 61.4 mL/min (>60); POTASSIUM 3.6 mmol/L (3.5-5.1); PROTEIN TOTAL SERUM 7.2 g/dL (6.0-8.3)
[2016-12-08 20:59] LABS: POC - CKMB <1.0 ng/mL (0.0-7.9); POC - TROPONIN <0.05 ng/mL (<=0.05)
[2016-12-29] MEDS ORDERED: DULOXETINE HCL60 M1 PO (09:54)
[2016-12-29] MEDS ORDERED: VISTARIL50 MG PO (09:55)
[2016-12-29] MEDS ORDERED: DESYREL50 MG DOB (09:56)
[2016-12-29] MEDS ORDERED: PRAVASTATIN SOD40 MG PO (09:56)
[2016-12-29] MEDS ORDERED: FLOMAX0.4 M1 DOB (09:56)
[2016-12-29] MEDS ORDERED: LOSARTAN-HCTZ1 EACH PO (09:57)
[2016-12-29] MEDS ORDERED: ABILIFY10 MG (09:57)
[2016-12-29] MEDS ORDERED: KLONOPIN0.5 M3 (09:58)
== END 2016-12-08 21:40 | disposition home or self-care (01) ==
LOC: CED 17:40
PROVIDERS: Emergency Medicine
DX: J44.1 Chronic obstructive pulmonary disease with (acute) exacerbation (principal); R55 Syncope and collapse; F32.9 Major depressive disorder, single episode, unspecified; I10 Essential (primary) hypertension; F17.200 Nicotine dependence, unspecified, uncomplicated
CPT/HCPCS: 36415; 71010; 80048; 80076; 82553; 83880; 84484; 85025; 93005; 99285

== ENCOUNTER → 2016-12-29 | Day surgery (SDC) | payer BC ==
[~2016-12-29] MED LIST changes: +ABILIFY10 MG; +DESYREL50 MG DOB; +DULOXETINE HCL60 M1 PO; +FLOMAX0.4 M1 DOB; +KLONOPIN0.5 M3; +VISTARIL50 MG PO
--- NOTE | ~2016-12-29 | OR ---
Unit #: [id number] #: [id number] Patient: RYLAN MIRAMONTES [id number] [address] [place], [place] [address] [id number] MR#: [id number] NAME: RYLAN MIRAMONTES. ROOM: Date of Procedure: 12/29/2016 Admission Date: 12/29/2016 Surgeon: Ahmet Malave M.D. : 1960 Attending Physician: Ahmet Malave M.D. Primary Care Physician: [facility] OPERATIVE REPORT JOB NOTE: CC: DR. ARREGUIN PROCEDURES PERFORMED Esophagogastroduodenoscopy with biopsy and colonoscopy with snare polypectomy. INDICATIONS FOR PROCEDURE The patient with significant abdominal pain, mostly in epigastric area, also with average risk for colorectal cancer. MEDICATIONS Monitored anesthesia. POSTOPERATIVE FINDINGS 1. Small segment of Avila esophagus, biopsies taken. 2. Gastritis and duodenitis with moderate intensity. Biopsies taken looking for H pylori. 3. Polyp, ascending colon, 6 to 8 mm, snared and sent for histopathology. 4. Rectosigmoid polyp, 5 total, snared and sent for histopathology together. 5. Internal hemorrhoids. 6. Good prep. PLAN Follow up on the pathology report. Symptomatic treatment for now. DESCRIPTION OF PROCEDURE The patient was explained of the procedure, risks, and benefits along with the risks and benefits of anesthesia. He was brought to the endoscopy room. Propofol anesthesia was given. Bite block was placed. The scope was passed down the mouth into the esophagus, stomach, duodenum, and distal duodenum. Findings as described. Biopsies taken. Gently, I pulled the scope out of the patient's mouth. He tolerated this part very well. At this time, he was turned around and repositioned for colonoscopy. Rectal exam was done, which was normal. Colonoscope was lubricated, passed up the rectum, advanced under direct vision all the way to the cecum. Cecum was identified by ileocecal valve and appendiceal orifice. Multiple polyps were seen as described. I retroflexed in the rectum, internal hemorrhoids noted. Gently, the scope was gently pulled out. He tolerated it well. Unit #: [id number] #: [id number] Patient: RYLAN MIRAMONTES Dictated by... Genet Stoddard/vivian TD: 12/29/2016 13:32 JOB #: [id number] OPERATIVE REPORT Page 1 of 1 X Ahmet Malave MD X PROCEDURE OPERATIVE NOTE
== END | disposition home or self-care (01) ==
LOC: COPS 08:48
DX: Z12.11 Encounter for screening for malignant neoplasm of colon (principal); D12.2 Benign neoplasm of ascending colon; D12.7 Benign neoplasm of rectosigmoid junction; K29.50 Unspecified chronic gastritis without bleeding; K92.89 Other specified diseases of the digestive system; K21.0 Gastro-esophageal reflux disease with esophagitis; K64.8 Other hemorrhoids; K22.70 Barrett's esophagus without dysplasia; N40.0 Benign prostatic hyperplasia without lower urinary tract symptoms; I10 Essential (primary) hypertension; J44.9 Chronic obstructive pulmonary disease, unspecified; G47.30 Sleep apnea, unspecified; F17.210 Nicotine dependence, cigarettes, uncomplicated; Z87.01 Personal history of pneumonia (recurrent); Z88.8 Allergy status to other drugs, medicaments and biological substances; Z79.899 Other long term (current) drug therapy
CPT/HCPCS: 88305; 88312; J2250